=== PATIENT | male | born 1955 | race Caucasian/White ===

== ENCOUNTER 2020-06-29 06:57 | Day surgery (SDC) | payer MEDICARE ==
[~2020-06-29] VITALS: Ht 182.9 cm; Wt 102.1 kg
[~2020-06-29 06:57] MED LIST: FENOFIBRATE145 MG PO; GLYBURIDE/METFO1 TAB PO; GLYBURIDE5 M1 PO; LEVOTHYROXIN50 MCG PO; LOSARTAN POTASS50 MG PO
[2020-06-29 09:02] VITALS: BP 166/99
== END 2020-06-29 09:35 | disposition home or self-care (01) ==
LOC: ENDO 06:57 → ORM 08:00 → ENDO 08:00
PROVIDERS: ATTEND Surgery
PROC: 0DBH8ZX Excision of Cecum, Via Natural or Artificial Opening Endoscopic, Diagnostic (ICD-10-PCS; principal; 2020-06-29)
DX: K57.31 Diverticulosis of large intestine without perforation or abscess with bleeding (principal); D12.0 Benign neoplasm of cecum; K64.8 Other hemorrhoids; I10 Essential (primary) hypertension; E11.9 Type 2 diabetes mellitus without complications; Z80.0 Family history of malignant neoplasm of digestive organs; Z20.828 Contact with and (suspected) exposure to other viral communicable diseases